=== PATIENT | male | born 1950 | race Caucasian/White ===

== ENCOUNTER 2018-10-01 12:01 | Inpatient (IN) | payer SELFPAY ==
[~2018-10-01] VITALS: Ht 177.8 cm; Wt 76.7 kg
--- NOTE | 2018-10-01 12:01 | NUR ---
SAAD. PER EMS, HE WAS PICKED UP FROM [facility].C/O DENIES PAIN OR ANY OTHER COMPLAINTS. FULL CLEAR SPEECH, PERRLA BRISK 3 MM. EQUAL MARIALUISA STRENGTH TO UPPER AND LOWER EXTREMITIES. PT HAD AN EPISODE OF INCONTINENCE. PT PLACED ON FULL BARMAID. PT REFUSED TO WEAR GOWN. ER TO EVALUATE PT.
--- NOTE | 2018-10-01 12:01 | NUR ---
Patient BIBA BLS, transferred to bed 2. RN evaluating patient at bedside.
[2018-10-01 12:04] VITALS: BP 123/80
--- NOTE | 2018-10-01 12:30 | NUR ---
PT UNABLE TO GIVE URINE SPECIMEN AT THIS TIME.
[2018-10-01] MEDS ORDERED: MULTIVITAMIN-12 10 ML, THIAMINE 100 MG, MAGNESIUM SULFATE 50% 2,000 MG, FOLIC ACID 5 MG... IV ONE ×5 (12:39)
[2018-10-01] MEDS ORDERED: NACL 0.9% 1,000 ML IV ONE (12:39)
--- NOTE | 2018-10-01 12:42 | NUR ---
DR MA AT BEDSIDE FOR PT EVALUATION
--- NOTE | 2018-10-01 13:10 | NUR ---
PT UNABLE TO GIVE URINE SPECIMEN AT THIS TIME.
[2018-10-01 13:21] LABS: EOSINOPHILS # (AUTO) 0.1 K/uL (0-0.4); EOSINOPHILS % (AUTO) 1.3 % (0.0-4.0); HEMOGLOBIN 13.2 g/dL (12.0-18.0); LYMPHOCYTES # (AUTO) 0.9 K/uL (2.0-11.5); LYMPHOCYTES % (AUTO) 18.4 % (20.5-51.1); MEAN CORPUSCULAR HEMOGLOBIN 33 pg (27-31); MEAN CORPUSCULAR HGB CONC 34 g/dL (33-37); MEAN CORPUSCULAR VOLUME 98.9 fL (80-94); MONOCYTES # (AUTO) 0.6 K/uL (0.8-1.0); MONOCYTES % (AUTO) 12.4 % (1.7-9.3); NEUTROPHILS # (AUTO) 3.3 K/uL (1.8-7.7); NEUTROPHILS % (AUTO) 66.9 % (42.2-75.2); RED BLOOD CELL COUNT(AUTO) 3.94 MIL/uL (4.20-6.10)
[2018-10-01 13:29] LABS: ANION GAP 12.3 (8-16); CARBON DIOXIDE 29.2 mmol/L (21-32); CREATININE 0.8 mg/dL (0.7-1.3); POTASSIUM 3.5 mmol/L (3.5-5.1)
[2018-10-01 13:30] LABS: PLATELET COUNT (AUTO) 94 K/uL (140-450)
[2018-10-01 13:35] LABS: ALBUMIN 3.3 g/dL (3.4-5.0); TOTAL BILIRUBIN 0.7 mg/dL (0.0-1.0)
--- NOTE | 2018-10-01 13:55 | NUR ---
CRITICAL LAB REPORT RECEIVED FROM TAWANA UMBRELLA TIPPER MACHINE. TROPONIN [phone]. READ BACK AND VERIFIED. DR MA NOTIFIED.
--- NOTE | 2018-10-01 14:25 | NUR ---
PENDING ADMISSION OF PT TO THE FLOOR. PT REFUSED TO CHANGE INTO GOWN. PT STATES THAT HE WOULD RATHER GO TO ALF.
--- NOTE | 2018-10-01 14:35 | NUR ---
PT UNABLE TO GIVE URINE AT THIS TIME.
[2018-10-01] MEDS ORDERED: ZOLPIDEM 5 MG TAB PO PRN (14:45)
[2018-10-01] MEDS ORDERED: ACETAMINOPHEN 325 MG TAB PO PRN (14:45)
[2018-10-01] MEDS ORDERED: MORPHINE SULFATE 2 MG/ML SYR IVP PRN (14:45)
[2018-10-01] MEDS ORDERED: LORazepam 2 MG/ML VIAL IM/IVP PRN (14:45)
[2018-10-01] MEDS ORDERED: HYDROcodone/APAP 5/325 MG 1 TAB TAB PO PRN (14:45)
[2018-10-01] MEDS ORDERED: DOCUSATE SODIUM 100 MG GELCAP PO PRN (14:45)
[2018-10-01] MEDS ORDERED: ONDANSETRON 4 MG/2 ML VIAL IM/IVP PRN (14:45)
--- NOTE | 2018-10-01 14:58 | NUR ---
PT STATES UNABLE TO GIVE URINE AT THIS TIME.
[2018-10-01 15:24] LABS: CHOL/HDL RATIO 1.7 (1-4.5); FREE T4 (FREE THYROXINE) 1.02 ng/dL (0.76-1.46); MAGNESIUM 1.6 mg/dL (1.8-2.4); PHOSPHORUS 3.2 mg/dL (2.5-4.9); THYROID STIMULATING HORMONE 0.71 uIU/mL (0.34-3.74)
--- NOTE | 2018-10-01 15:45 | NUR ---
RECEIVED REPORT FROM EMERGENCY ROOM NURSE SAMM FOR CONTINUITY OF CARE. PT IN STABLE CONDITION. IV INTACT AND PATENT. RESPIRATIONS EVEN AND UNLABORED. ROOM AIR. BED IN LOW POSITION. CALL LIGHT AT BEDSIDE. WILL CONTINUE TO MONITOR.
--- NOTE | 2018-10-01 15:45 | NUR ---
Patient will be admitted to care of Dr. Flowers. Admited to TELE. Will go to room 105 A. Belongings list completed. Report to CATERINA BANEGAS.
[2018-10-01] MEDS ORDERED: MULTIVITAMIN-12 10 ML, THIAMINE 100 MG, MAGNESIUM SULFATE 50% 2,000 MG, FOLIC ACID 1 MG... IV SCH ×5 (16:06)
[2018-10-01] MEDS: chlordiazePOXIDE 25 MG CAP PO SCH (17:06)
[2018-10-01] MEDS: NACL 0.9% 1,000 ML IV SCH ×2 (17:14→23:03)
--- NOTE | 2018-10-01 17:14 | NUR ---
IV NS FLUIDS STARTED AT THIS TIME. MULTIVITAMIN WAS STILL INFUSING AT 1443.
[2018-10-01 17:23] VITALS: BP 122/74
--- NOTE | 2018-10-01 19:12 | NUR ---
GAVE REPORT TO PUMPMAN NURSE JOSE FOR CONTINUITY OF CARE. PT IN STABLE CONDITION.
--- NOTE | 2018-10-01 19:13 | NUR ---
RECEIVED BEDSIDE REPORT FROM DAY SHIFT NURSE, BASSAM, PT SLEEPING IN BED. NO SOB OR ANY RESPIRATORY DISTRESS NOTED. IV SITE ON LAC 20G, RUNNING NS @120ML/HR. INTACT, PATENT, AND ASYMPTOMATIC. WOUND NOTED ON RFA. SKIN WARM AND DRY TO TOUCH. BED IN LOW POSITION, CALL LIGHT WITHIN REACH. WILL CONTINUE TO MONITOR.
[2018-10-01 20:00] VITALS: BP 121/68
--- NOTE | 2018-10-01 20:08 | NUR ---
RECEIVED CALL FROM LAB FOR CRITICAL LAB VALUE, TROPONIN [phone]. REPORTED DR. MENDOZA. NO ORDER CHANGED. WILL CONTINUE TO MONITOR.
--- NOTE | 2018-10-01 22:05 | NUR ---
PT SLEEPING IN BED. NO S/S OF ANY DISTRESS NOTED. BED IN LOW POSITION AND CALL LIGHT WITHIN REACH.
[2018-10-01] MEDS ORDERED: ALBUTEROL SULFATE/IPRATROPIU 3 ML SOL IH PRN (23:55)
[2018-10-02] VITALS: BP 119/64
--- NOTE | 2018-10-02 00:03 | NUR ---
VS CHECKED. O2SAT 87%, REPORT TO DR. ROMO AND CALL RT TO GET OXYGEN AND BREATHING TREATMENT.
--- NOTE | 2018-10-02 02:16 | NUR ---
RECEIVED CALL FROM LAB FOR CRITICAL LAB VALUE, TROPONIN [phone] ROMO. HEPARIN DRIP ORDER RECEIVED. WILL ADMINISTER.
[2018-10-02] MEDS ORDERED: HEPARIN PER PHARMACY MC PRN (02:20)
[2018-10-02] MEDS ORDERED: hePARIN / DEXT 5% PREMIX 250 ML IV SCH ×2 (02:20→04:00)
[2018-10-02] MEDS ORDERED: NITROGLYCERIN 0.4 MG TAB SL PRN (02:20)
[2018-10-02] MEDS ORDERED: METOPROLOL 25 MG TAB PO SCH (03:00)
[2018-10-02] MEDS ORDERED: ASPIRIN 81 MG TAB.CHEW PO SCH (03:00)
[2018-10-02] MEDS ORDERED: LISINOPRIL 5 MG TAB PO SCH (03:00)
--- NOTE | 2018-10-02 03:22 | NUR ---
START NEW IV LINE FOR HEPARIN, FLUSH WELL, GOOD BLOOD RETURN NOTED. GIVEN HEPARIN ORDERED. PT TOLERATED WELL.
[2018-10-02] MEDS ORDERED: MULTIVITAMIN-12 10 ML, THIAMINE 100 MG, MAGNESIUM SULFATE 50% 2,000 MG, FOLIC ACID 1 MG... IV SCH ×5 (04:00)
[2018-10-02] MEDS: NACL 0.9% 1,000 ML IV SCH ×2 (07:23→19:56)
[2018-10-02] MEDS: ALBUTEROL SULFATE/IPRATROPIU 3 ML SOL IH SCH ×3 (07:37→19:15)
[2018-10-02 08:00] VITALS: BP 130/79
--- NOTE | 2018-10-02 08:23 | NUR ---
PT'S OPENING NOTE WAS WRITTEN ON PAPER, IN PT'S CHART, DUE TO SYSTEM DOWN THIS AM.
[2018-10-02] MEDS: LISINOPRIL 5 MG TAB PO SCH (08:50)
[2018-10-02] MEDS: chlordiazePOXIDE 25 MG CAP PO SCH ×3 (08:50→18:04)
[2018-10-02] MEDS: METOPROLOL 25 MG TAB PO SCH ×2 (08:51→20:38)
[2018-10-02] MEDS: ASPIRIN 81 MG TAB.CHEW PO SCH (08:51)
--- NOTE | 2018-10-02 09:13 | NUR ---
AM MEDS ADMINISTERED, PT TOLERATED WELL. IV HEPARIN DRIP DC'D PER MD ORDER.
--- NOTE | 2018-10-02 10:47 | NUR ---
PT HAVING A BED BATH AT THIS TIME. BED LINENS CHANGED.
--- NOTE | 2018-10-02 11:05 | NUR ---
PT'S LEFT ARM IS NOTED TO BE SWOLLEN AND HARD DURING HIS BED BATH. PT HAS BEEN GETTING IV FLUIDS THROUGH THE LAC IV. PT'S IV DISCONNECTED AND MOVED TO THE R ARM. DR SHIN AWARE AND WILL GO SEE THE PATIENT.
--- NOTE | 2018-10-02 11:18 | NUR ---
URINE COLLECTED AND TAKEN TO LAB FOR URINALYSIS PER MD ORDER.
[2018-10-02 12:00] VITALS: BP 126/68
[2018-10-02 13:00] LABS: APPEARANCE,URINE CLEAR (CLEAR); BILIRUBIN,URINE 1+ (NEGATIVE); BLOOD, URINE NEGATIVE (NEGATIVE); COLOR,URINE AMBER (YELLOW); LEUKOCYTE ESTERASE ,URINE NEGATIVE (NEGATIVE); NITRITE, URINE NEGATIVE (NEGATIVE); PH,URINE 5.5 (5.0-9.0); UGLUCOSE NEGATIVE (NEGATIVE)
[2018-10-02 13:03] LABS: BARBITURATE, URINE NEG. ng/ml (NEG <=200); BENZODIAZEPINE, URINE POS. ng/mL (NEG <=200); CANNABINOID, URINE NEG. ng/mL (NEG <=50); COCAINE, URINE NEG. ng/mL (NEG <=300); OPIATE, URINE NEG. ng/mL (NEG <=2000); PHENCYCLIDINE SCREEN,URINE NEG. ng/mL (NEG <=25)
--- NOTE | 2018-10-02 13:30 | NUR ---
DR SHIN ASSESSING PT'S SWOLLEN LEFT ARM AT THIS TIME. ARM IS STILL SWOLLEN AND FIRM TO TOUCH. DR SHIN TO REDUCE RATE OF IVF FROM 120 TO 40 ML/HR TO PREVENT FLUID OVERLOADING THE PT.
[2018-10-02 16:00] VITALS: BP 137/78
--- NOTE | 2018-10-02 16:22 | NUR ---
PT HAD AN EPISODE OF DIARRHEA X 1. STOOL WAS LIQUID AND LIGHT BROWN IN COLOR. PT HAD A BM IN THE TOILET, SO WAS NOT ABLE TO COLLECT A SAMPLE. PT SAYS THIS IS THE FIRST TIME HE HAD A BM TODAY, AND THE FIRST TIME HE HAD A LIQUID BM HERE. DR SHIN IS AWARE. WILL CONTINUE TO MONITOR PT.
--- NOTE | 2018-10-02 16:55 | NUR ---
CALLED THE [facility] AND LEFT A VOICE MESSAGE ASKING TO VERIFY PT'S NEW IV ABX ORDERS. AWAITING THEIR RESPONSE.
[2018-10-02] MEDS ORDERED: cefTRIAXone 1,000 MG VIAL ONE (18:04)
--- NOTE | 2018-10-02 18:30 | NUR ---
PT DECLINING DINNER AT THIS TIME, SAYS HE IS NOT HUNGRY AND WILL TRY TO EAT LATER.
--- NOTE | 2018-10-02 19:25 | NUR ---
PT ENDORSED TO CODING COMPLIANCE MANAGER NURSE IN STABLE CONDITION.
--- NOTE | 2018-10-02 19:50 | NUR ---
SEEN PT SITTING ON SIDE OF BED, APPEARS ANXIOUS AND RESTLESS, STATED WANTS TO GO OUTSIDE, REORIENT PT TO PLACE AND TIME, PT STILL INSISTING TO GO OUT, ASSISTED BACK TO BED WITH TANNER BROOKS, ATIVAN IVP GIVEN FOR ANXIETY, SIDE RAILS X3 UP, FREQUENT CHECKS MADE.
[2018-10-02 20:00] VITALS: BP 123/69
--- NOTE | 2018-10-02 20:40 | NUR ---
PT TRANSFERRED TO ROOM 107A AND TO A BED WITH BED ALARM, PT STATED FEELING BETTER, CALM AT THIS TIME, DUE MEDS ADMINISTERED WITH APPLE JUICE, ALL NEEDS ATTENDED.
[2018-10-02] MEDS ORDERED: ATORVASTATIN 20 MG TAB PO SCH (21:00)
[2018-10-02] MEDS ORDERED: CLINDAMYCIN 600 MG/4 ML VIAL ONE (23:17)
[2018-10-02] MEDS: CLINDAMYCIN 600 MG in DEXTROSE 5% 50 ML IV SCH (23:18)
--- NOTE | 2018-10-02 23:50 | NUR ---
PT SLEEPING, EASILY AROUSABLE, VITAL SIGNS STABLE, SAT-96% ON O2 AT 2L NC, NO SOB NOTED, PT CALM AND WENT BACK TO SLEEP, IVF INFUSING WELL, SIDE RAILS UP AND BED ALARM ON, SEIZURE PRECAUTION IN PLACE, CONTINUE TO MONITOR CLOSELY.
[2018-10-03] VITALS: BP 103/53
--- NOTE | 2018-10-03 03:45 | NUR ---
PT SLEEPING, AWAKEN TO VERBAL STIMULI, VITAL SIGNS STABLE, SAT-98% ON O2 2L NC, PT WENT BACK TO SLEEP, IVF INFUSING WELL, MONITORED CLOSELY.
[2018-10-03 04:00] VITALS: BP 119/62
[2018-10-03] MEDS: NACL 0.9% 1,000 ML IV SCH (04:55)
[2018-10-03] MEDS: CLINDAMYCIN 600 MG in DEXTROSE 5% 50 ML IV SCH (06:17)
--- NOTE | 2018-10-03 06:20 | NUR ---
PT SLEEPING, EASILY AROUSABLE TO VERBAL STIMULI, DUE CLEOCIN IVPB ADMINISTERED, PT WENT BACK TO SLEEP, NO SEIZURE EPISODE THE WHOLE SHIFT, SIDE RAILS UP AND BED ALARM ON, MONITORED CLOSELY.
[2018-10-03] MEDS ORDERED: CLINDAMYCIN 600 MG/4 ML VIAL ONE (06:22)
--- NOTE | 2018-10-03 06:28 | NUR ---
PATIENT HAS BEEN SCREENED AND CATEGORIZED MODERATE NUTRITION RISK. PATIENT WILL BE SEEN WITHIN 3-5 DAYS OF ADMISSION. 10/04/18-10/06/18 RAGHU MAR MS, RDN
[2018-10-03] MEDS: ALBUTEROL SULFATE/IPRATROPIU 3 ML SOL IH SCH (07:14)
--- NOTE | 2018-10-03 07:15 | NUR ---
PT SLEEPING, NO DISTRESS NOTED, BEDSIDE REPORT GIVEN TO CATERINA GUPTA FOR CONTINUITY OF CARE.
--- NOTE | 2018-10-03 07:16 | NUR ---
RECEIVED REPORT FROM LAND INSPECTOR NURSE. PATIENT LYING DOWN IN BED SLEEPING, AROUSABLE BY VOICE. NO DISTRESS NOTED. DENIES ANY PAIN. RESPIRATIONS EVEN, UNLABORED, ON O2 2L/MIN VIA NC. AAOX3, CALM, COOPERATIVE, SKIN COLOR APPROPRIATE TO ETHNICITY, WARM TO TOUCH. HAS LEFT FOREARM S/P FALL SKIN TEAR SCAB. IV SITE INTACT, PATENT, AND INFUSING IVF PER MD ORDERS. ABDOMEN SOFT, NON-DISTENDED. REVIEWED PLAN OF CARE WITH PATIENT. PATIENT VERBALIZED UNDERSTANDING. SAFETY MEASURES IN PLACE, CALL LIGHT WITHIN REACH. WILL CONTINUE TO MONITOR.
[2018-10-03 07:43] LABS: BASOPHILS % (AUTO) 0.2 % (0.0-2.0); EOSINOPHILS % (AUTO) 0.3 % (0.0-4.0); HEMOGLOBIN 10.6 g/dL (12.0-18.0); LYMPHOCYTES # (AUTO) 0.8 K/uL (2.0-11.5); LYMPHOCYTES % (AUTO) 8.8 % (20.5-51.1); MEAN CORPUSCULAR HEMOGLOBIN 35 pg (27-31); MEAN CORPUSCULAR HGB CONC 35 g/dL (33-37); MEAN CORPUSCULAR VOLUME 98.2 fL (80-94); MONOCYTES % (AUTO) 10.8 % (1.7-9.3); NEUTROPHILS # (AUTO) 7.1 K/uL (1.8-7.7); NEUTROPHILS % (AUTO) 79.9 % (42.2-75.2); RED BLOOD CELL COUNT(AUTO) 3.05 MIL/uL (4.20-6.10); RED CELL DISTRIBUTION WIDTH 14.2 % (11.6-13.7); WHITE BLOOD COUNT (AUTO) 8.8 K/uL (4.8-10.8)
[2018-10-03 07:57] LABS: ANION GAP 13.7 (8-16); CARBON DIOXIDE 23.8 mmol/L (21-32); CREATININE 0.7 mg/dL (0.7-1.3); POTASSIUM 3.5 mmol/L (3.5-5.1)
[2018-10-03 07:58] LABS: PLATELET COUNT (AUTO) 77 K/uL (140-450)
[2018-10-03 08:00] VITALS: BP 111/65
[2018-10-03 08:11] LABS: MAGNESIUM 1.7 mg/dL (1.8-2.4); PHOSPHORUS 3.2 mg/dL (2.5-4.9)
[2018-10-03] MEDS: ASPIRIN 81 MG TAB.CHEW PO SCH (08:34)
[2018-10-03] MEDS: METOPROLOL 25 MG TAB PO SCH (08:34)
[2018-10-03] MEDS: LISINOPRIL 5 MG TAB PO SCH (08:35)
[2018-10-03] MEDS: chlordiazePOXIDE 25 MG CAP PO SCH (08:35)
--- NOTE | 2018-10-03 08:39 | NUR ---
PATIENT LYING DOWN IN BED SLEEPING, AROUSABLE BY VOICE. NO DISTRESS NOTED. DENIES ANY PAIN. SCHEDULED MEDICATIONS DUE GIVEN. WILL CONTINUE TO MONITOR.
[2018-10-03] MEDS ORDERED: AZIT250T3 PO (09:00)
[2018-10-03] MEDS ORDERED: LACTOBACILLUS RHAMNOSUS GG 1 EACH CAP PO SCH (09:00)
[2018-10-03] MEDS ORDERED: LACT1.4C PO (09:01)
[2018-10-03] MEDS ORDERED: MAGNESIUM OXIDE 400 MG TAB PO SCH (10:12)
--- NOTE | 2018-10-03 10:58 | NUR ---
DISCHARGE INSTRUCTIONS GIVEN TO PATIENT IN PREFERRED LANGUAGE OF RUSSIAN. INSTRUCTIONS ON FOLLOW-UP VISIT WITH PCP, NEW MEDICATION REGIMEN AND SIDE EFFECTS, DIET REGIMEN, AND COMMUNITY RESOURCES PROVIDED TO PATIENT. ANSWERED ALL OF PATIENT'S QUESTIONS REGARDING DISCHARGE. PATIENT VERBALIZED COMPLETE UNDERSTANDING. IV SITE REMOVED WITH MINIMAL BLOOD AND LUMEN COMPLETELY INTACT. ID BANDS REMOVED. PATIENT TO GET DRESSED AND THEN READY TO GO TO HOME TO HIS CHOOSING. REFUSED BUS PASS OFFERED TO HIM AT THIS TIME. WILL CONTINUE TO MONITOR.
--- NOTE | 2018-10-03 11:05 | NUR ---
HOMELESS PACKET GIVEN TO PATIENT. PATIENT VERBALIZED UNDERSTANDING AND SIGNED HOMELESS WAIVER FORM.
--- NOTE | 2018-10-03 11:13 | NUR ---
PATIENT GETTING DRESSED. SCHEDULED MEDICATIONS DUE GIVEN. WILL CONTINUE TO MONITOR.
--- NOTE | 2018-10-03 12:15 | NUR ---
PATIENT ALL DRESSED AND READY TO GO. ID BANDS REMOVED. ESCORTED PATIENT DOWN TO LOBBY VIA WHEELCHAIR. PATIENT TO GO TO BUS STOP TO [facility]. PATIENT DISCHARGED AT THIS TIME IN STABLE CONDITION.
[2018-10-03] MEDS ORDERED: CLINDAMYCIN PHOS 600MG/D5W PM 50 ML IV SCH (15:00)
== END 2018-10-03 12:15 | disposition home or self-care (01) | DRG 432 ==
LOC: MED 12:01 → MTU 14:46
PROVIDERS: ADMIT General Practice; ATTEND General Practice
DX: K70.10 Alcoholic hepatitis without ascites (principal); G92 Toxic encephalopathy; J18.9 Pneumonia, unspecified organism; E44.1 Mild protein-calorie malnutrition; F10.129 Alcohol abuse with intoxication, unspecified; E86.0 Dehydration; E87.8 Other disorders of electrolyte and fluid balance, not elsewhere classified; Y90.9 Presence of alcohol in blood, level not specified; Z59.0 Homelessness; F17.210 Nicotine dependence, cigarettes, uncomplicated; E83.42 Hypomagnesemia; Z68.24 Body mass index [BMI] 24.0-24.9, adult; Z71.6 Tobacco abuse counseling; Y92.89 Other specified places as the place of occurrence of the external cause
CPT/HCPCS: 36415; 71045; 80048; 80053; 80305; 81003; 82150; 83036; 83690; 83735; 83880; 84100; 84439; 84443; 84484; 85025; 85610; 85730; 87081; 93005; 94640; 96361; 96374; 99285; A9153; G0482; J0696; J1644; J2060; J3411; J3475; J3490; J7030; J7060; J7620; Q0092